=== PATIENT | male | born 2000 | race African-American/Black ===

== ENCOUNTER 2021-09-03 09:49 | Emergency (ER) | payer MEDICAID, OTHER ==
[~2021-09-03] VITALS: Ht 152.4 cm; Wt 57.0 kg
[~2021-09-03 09:49] MED LIST: ARIP10TA9 PO; LITH150C PO; LITH8SOL PO
[2021-09-03 09:56] VITALS: BP 142/81
--- NOTE | 2021-09-03 10:00 | PHYS DOC ---
Past History Past Medical History: No Pertinent History Past Surgical History: No Surgical History Smoking: Non-smoker Alcohol Use: None Drug Use: None Adult General Chief Complaint Chief Complaint: SUICIDAL IDEATION [facility] HPI Patient is a 21-year-old male presenting via EMS for suicidal ideation. Patient has history of depression which she does not see anyone in outpatient setting for nor take any medications. States this is a chronic issue as he was put up for adoption at an early age but in his later years has developed more of a relationship with his biologic mother. Ports increased social stressors recently and had a mental breakdown at work where he went into the bathroom and started crying. He later presented to and reported that he had suicidal ideation without any plan to harm himself and so, EMS was subsequently called to transport patient to our facility. On arrival, patient denies any homicidal ideation or plans for suicidal ideation but does admit thoughts that he would be better off . Admits smoking "shahriar weed" otherwise no other medical issues or ingestions daily. He admits prior history of inpatient psychiatric placement Review of Systems Review of Systems Fourteen body systems of review of systems have been reviewed. See HPI for pertinent positives and negative responses, other sommers all other systems are negative, non-pertinent or non-contributory Allergies Allergies Allergies Coded Allergies Type Severity Reaction Last Updated Verified No Known Drug Allergies 11/28/13 No Physical Exam Physical Exam Constitutional: Well developed, well nourished, no acute distress, non-toxic appearance. HENT: Normocephalic, atraumatic, bilateral external ears normal, oropharynx moist, no oral exudates, nose normal. Eyes: PERRLA, EOMI, conjunctiva normal, no discharge. Neck: Normal range of motion, no tenderness, supple, no stridor. Cardiovascular: Heart rate regular, sinus rhythm, no murmurs rubs or gallops Lungs & Thorax: Bilateral breath sounds clear to auscultation Abdomen: Bowel sounds normal, soft, no tenderness, no masses, no pulsatile masses. Nonsurgical abdomen, no peritoneal signs Skin: Warm, dry, no erythema, no rash. Back: No tenderness, no CVA tenderness. Extremities: No tenderness, no cyanosis, no clubbing, ROM intact, no edema. Neurologic: Alert and oriented X 3, grossly normal motor & sensory function, no focal deficits noted. Psychologic: Anxious affect, depressed mood Current Patient Data Vital Signs Vital Signs Date Time Temp Pulse Resp B/P (MAP) Pulse Ox O2 Delivery O2 Flow Rate FiO2 09/03/21 09:56 98.0 55 16 142/81 (101) 100 Room Air Vital Signs Date Time Temp Pulse Resp B/P (MAP) Pulse Ox O2 Delivery O2 Flow Rate FiO2 09/03/21 09:56 98.0 55 16 142/81 (101) 100 Room Air Lab Results Laboratory Tests Test 09/03/21 10:09 Influenza Type A (Rapid) Negative Influenza Type B (Rapid) Negative SARS-CoV-2 Antigen (Rapid) Negative EKG EKG [] Radiology/Procedures Radiology/Procedures [] Heart Score C/O Chest Pain: No Risk Factors: Risk Factors: DM, Current or recent (<one month) smoker, HTN, HLP, family history of CAD, obesity. Risk Scores: Risk Factors: DM, Current or recent (<one month) smoker, HTN, HLP, family history of CAD, obesity. Course & Med Decision Making Course & Med Decision Making ABCs unremarkable. Patient with passive suicidal ideation without a plan. Admits marijuana abuse only. Only allowing Covid swab on initial arrival. Patient evaluated by qualified mental health professional who reviewed any appropriate supporting documentation and previous available medical records and feels patient does not meet criteria for admission to a mental health facility. Please refer to qualified mental health professional's documentation for details regarding this decision. Will discharge patient with appropriate mental health resources and follow up. Dragon Disclaimer Dragon Disclaimer This electronic medical record was generated, in whole or in part, using a voice recognition dictation system. Departure Departure: Impression: Primary Impression: Suicidal ideation Disposition: 01 HOME / SELF CARE / HOMELESS Condition: STABLE Referrals: EMMANUEL CONLEY MD (PCP) Additional Instructions: As disclosed prior to ER departure, please adhere to safety plan that was reviewed with behavioral health specialist. Should he experience any concerning thoughts such as wanting to harm self or others please adhere to safety plan and/or represent to our ER for evaluation. Is a pleasure to take care of you an d I wish you the best going forward SETHAUDRA DO Sep 03, 2021 10:00
[2021-09-03 11:01] LABS: INFLUENZA A PATIENT NEGATIVE (NEGATIVE); INFLUENZA B PATIENT NEGATIVE (NEGATIVE)
== END 2021-09-03 12:39 | disposition home or self-care (01) ==
LOC: ER 09:49
DX: R45.851 Suicidal ideations (principal); F32.9 Major depressive disorder, single episode, unspecified; Z20.822 Contact with and (suspected) exposure to COVID-19
CPT/HCPCS: 87428; 99285